=== PATIENT | male | born 1945 | race Caucasian/White ===

== ENCOUNTER 2018-09-12 05:49 | Day surgery (SDC) | payer MEDICARE ==
[2018-09-04 10:44] LABS: BASOPHILS % (AUTO) 0.3 % (0-1); EOSINOPHILS # (AUTO) 0.2 X10'3 (0-0.9); EOSINOPHILS % (AUTO) 2.9 % (0-6); LYMPHOCYTES # (AUTO) 1.1 X10'3 (1.1-4.8); MEAN CORPUSCULAR HEMOGLOBIN 29.7 PG (27.0-31.0); MEAN CORPUSCULAR HGB CONC 33.1 % (33.0-36.5); MEAN CORPUSCULAR VOLUME 89.7 FL (78-98); MEAN PLATELET VOLUME 7.1 FL (7.4-10.4); MONOCYTES # (AUTO) 0.6 X10'3 (0-0.9); MONOCYTES % (AUTO) 7.6 % (2-12); NEUTROPHILS # (AUTO) 6.2 X10'3 (1.8-7.7); NEUTROPHILS % (AUTO) 75.2 % (42-75); PRE OP HEMATOCRIT 45.7 % (42.0-52.0); PRE OP HEMOGLOBIN 15.1 g/dL (14.0-17.9); PRE OP PLATELET COUNT 212 X10'3 (140-440); RED CELL DISTRIBUTION WIDTH 13.6 % (11.5-14.5)
[2018-09-04 10:53] LABS: PRE OP PROTIME 10.6 SECONDS (9.0-12.0)
[2018-09-04 10:56] LABS: ALBUMIN 3.9 G/DL (3.4-5.0); ALBUMIN/GLOBULIN RATIO 1.1 (1.1-1.5); ALKALINE PHOSPHATASE 87 IU/L (46-116); BLOOD UREA NITROGEN 17 MG/DL (7-18); BUN/CREATININE RATIO 18.3 (5.4-32.0); CALCIUM 9.1 MG/DL (8.5-10.1); CHLORIDE 106 MMOL/L (99-107); CREATININE 0.93 MG/DL (0.60-1.10); PRE OP ALT 28 U/L (30-65); PRE OP ANION GAP 6 (8-16); PRE OP AST 20 U/L (10-37); PRE OP BILIRUB, TOTAL 0.7 MG/DL (0.0-1.0); PRE OP GLUCOSE 114 MG/DL (70-104); PRE OP POTASSIUM 3.9 MMOL/L (3.4-5.1); PRE OP SODIUM 144 MMOL/L (135-145); TOTAL CARBON DIOXIDE 31.8 MMOL/L (24-32); TOTAL PROTEIN 7.4 G/DL (6.4-8.2); eGFR 80 ML/MIN
[~2018-09-12] VITALS: Ht 188 cm; Wt 90.2 kg
[2018-09-12] VITALS (20 sets, daily range): BP systolic 105–136; BP diastolic 60–78
[~2018-09-12 05:49] MED LIST: ACET-2319 PO; ACET-2812 PO; ASCO500C15 PO; ASPI-1265 PO; CALC1TAB PO; CYAN-19 PO; LOSA1TAB41 PO; MULT-38 PO; TRAM50TA2 PO; VANCOMYCIN INJ 1000 MG in NORMAL SALINE 250ml IV.SOLN IV ONE; cefazolin/dext.iso 2gm/50ml 50 ML IV ONE; famotidine 20mg tablet PO ONE; ringers solution, lacted 1,000 ML IV SCH
[2018-09-12] MEDS ORDERED: LIDOcaine 1%/PF 5ML 10 MG/ML VIAL ONE (07:22)
[2018-09-12] MEDS ORDERED: cloNIDine hcl/PF 100mcg/ml inj ONE (07:24)
[2018-09-12] MEDS ORDERED: fentaNYL/PF 50MCG/1 ML 2ML syringe ONE ×2 (07:25→09:42)
[2018-09-12] MEDS ORDERED: MIDAZolam 5mg/5ml vial ONE (07:25)
[2018-09-12] MEDS ORDERED: dexamethasone sod phosphate 4mg/ml inj. ONE (07:26)
[2018-09-12] MEDS ORDERED: ROPIVAcaine 0.5% (5mg/ml) 30ml vial ONE (07:26)
[2018-09-12] MEDS ORDERED: proCHLORperazine 10 MG/2 ml inj IV PRN (08:55)
[2018-09-12] MEDS ORDERED: morphine 4 MG/ML inj SYRINge IV PRN ×2 (08:55)
[2018-09-12] MEDS ORDERED: ondansetron/PF 4mg/2ml inj IV PRN (08:55)
[2018-09-12] MEDS ORDERED: meperidine/PF 25mg/ml syringe IV PRN ×3 (08:55)
[2018-09-12] MEDS ORDERED: ringers solution, lacted 1,000 ML IV SCH (08:55)
--- NOTE | 2018-09-12 10:29 | NUR ---
Received from OR via BED, accompanied by Anesthesiologist DR GONZALEZ and report given by Anesthesiologist. 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 Addendum: 09/12/18 at 1217 by Meghann Cortez RN Amended: Links added.
[2018-09-12] MEDS ORDERED: propofol inj 20 ML IV ONE (10:56)
--- NOTE | 2018-09-12 15:09 | NUR ---
PT D/CD TO HOME AFTER RECEIVING D/C INSTRUCTIONS, BOTH HE AND HIS VERBALIZE UNDERSTANDING, PT ABLE TO USE WALKER FOR SHORT DISTANCE, STATES HAS WALKER, CRUTCHES AND ONE KNEE SCOOTER AT HOME, STATES HER DAUGHTER WILL COME AND ASSIST PT INTO HOME. PT WAS STABLE WITH WALKER. ALL D/C INSTRUCTIONS INCLUDING INFORMATION ON REGIONAL NERVE BLOCK DISCUSSED AND GIVEN TO PT/PTS . Addendum: 09/12/18 at 1522 by Meghann Cortez RN Amended: Links added.
== END 2018-09-12 15:09 | disposition home or self-care (01) ==
LOC: PAS 05:49
PROVIDERS: ATTEND Orthopaedic Surgery
DX: M21.42 Flat foot [pes planus] (acquired), left foot (principal); M21.072 Valgus deformity, not elsewhere classified, left ankle; M24.572 Contracture, left ankle; M65.872 Other synovitis and tenosynovitis, left ankle and foot; M67.874 Other specified disorders of tendon, left ankle and foot; M66.872 Spontaneous rupture of other tendons, left ankle and foot; M19.072 Primary osteoarthritis, left ankle and foot; M77.52 Other enthesopathy of left foot and ankle; G89.18 Other acute postprocedural pain; I10 Essential (primary) hypertension; K21.9 Gastro-esophageal reflux disease without esophagitis; F32.89 Other specified depressive episodes; E66.9 Obesity, unspecified; M17.11 Unilateral primary osteoarthritis, right knee; G89.29 Other chronic pain; Z79.891 Long term (current) use of opiate analgesic; Z79.82 Long term (current) use of aspirin; Z88.5 Allergy status to narcotic agent; Z88.6 Allergy status to analgesic agent; Z87.891 Personal history of nicotine dependence; Z87.19 Personal history of other diseases of the digestive system; Z68.25 Body mass index [BMI] 25.0-25.9, adult; Z79.899 Other long term (current) drug therapy; Z98.890 Other specified postprocedural states
CPT/HCPCS: 27626; 27685; 28200; 28238; 28261; 28740; 36415; 64447; 64450; 73620; 76001; 80053; 85025; 85610; 85730; A6449; C1713; J0690; J0735; J1100; J2001; J2250; J2704; J3010; J3370; A6250; A7000; C1750; J2795; J7120